=== PATIENT | male | born 1995 | race Caucasian/White ===

== ENCOUNTER 2017-02-07 13:02 | Emergency (ER) | payer SELFPAY ==
[~2017-02-07] VITALS: Ht 170.2 cm; Wt 90.0 kg
[2017-02-07 13:03] VITALS: BP 132/69; PULSE 82; RESP 16; TEMP 98.5
[2017-02-07 13:20] VITALS: O2SAT 97
--- NOTE | 2017-02-07 13:21 | PD ---
Physical Exam Date Seen by Provider: February 07, 2017 Time Seen by Provider: 13:20 Narrative 21 year old male presents to the emergency department for evaluation of possible allergic reaction to poison kwasi 2 days ago. He denies any difficulty swallowing or breathing. He has tried Benadryl over the counter. Vital signs reviewed. Patient awaiting bed placement. Data Data Last Documented VS Vital Signs Date Time Temp Pulse Resp B/P Pulse Ox O2 Delivery O2 Flow Rate FiO2 02/07/17 13:03 98.5 82 16 132/69 [facility] Supervised Visit with TAVO: Juli Denton February 07, 2017 13:21
--- NOTE | 2017-02-07 13:43 | PD ---
HPI Chief Complaint: Skin Problem Time Seen by Provider: 13:43 Travel History International Travel<30 days: No Contact w/Intl Traveler<30days: No Traveled to known affect area: No History of Present Illness HPI 21-year-old male presents to emergency Department with complaint of a rash all over his body times one week. He reports being in contact with poison vanessa. The rash is itchy. He denies fever, chills, nausea, vomiting. Denies airway edema, shortness of breath, difficulty breathing. Has taken Benadryl and says the Benadryl made his symptoms worse. He tried [id number] topical anti- itch creams with no relief of symptoms. He says the rash is spread and now his girlfriend has the rash also. No known allergies. Has no other medical complaints. No other modifying factors or associated signs and symptoms. [facility] Social History Tobacco Use: No Allergies-Medications (Allergen,Severity, Reaction): Coded Allergies: No Known Allergies (Unverified , 02/07/17) Reported Meds & Prescriptions Reported Meds & Active Scripts Active Deltasone (Prednisone) 20 Mg Tab 40 Mg PO DAILY 4 Days start 02/08/2017 Review of Systems Except as stated in HPI: all other systems reviewed are Neg Physical Exam Narrative GENERAL: Well-nourished, well-developed patient, in no acute distress; afebrile , nontoxic-appearing SKIN: Warm and dry. Generalized large and small areas of maculopapular rash to bilateral upper and lower extremities, chest, abdomen. No areas of cellulitic process noted. HEAD: Atraumatic. Normocephalic. EYES: Pupils equal and round. ENT: Mucosa pink and moist. No erythema or exudates. Airway patent. EARS: Bilateral pinnae and external canals appear within normal limits. NECK: Trachea midline. No lymphadenopathy. CARDIOVASCULAR: Regular rate and rhythm. No murmur appreciated. RESPIRATORY: No accessory muscle use. Clear to auscultation. Breath sounds equal bilaterally. GASTROINTESTINAL: Abdomen soft, non-tender, nondistended. Hepatic and splenic margins not palpable. Bowel sounds are active 4 quadrants. MUSCULOSKELETAL: No obvious deformities. No clubbing. No cyanosis. No edema. NEUROLOGICAL: Awake and alert. Oriented 3. No obvious cranial nerve deficits. Motor grossly within normal limits. Normal speech. Moves all extremities. 5/5 strength to all extremities. PSYCHIATRIC: Appropriate mood and affect; insight and judgment normal. Data Data Last Documented VS Vital Signs Date Time Temp Pulse Resp B/P Pulse Ox O2 Delivery O2 Flow Rate FiO2 02/07/17 13:20 97 02/07/17 13:03 98.5 82 16 132/69 Orders Prednisone (Deltasone) (02/07/17 13:45) MDM Medical Decision Making Medical Screen Exam Complete: Yes Emergency Medical Condition: Yes Medical Record Reviewed: Yes Differential Diagnosis Poison vanessa rash, contact dermatitis, hives Narrative Course 21-year-old male with a nonspecific skin eruption and rash generalized to the bilateral upper and lower extremities, chest, abdomen. Patient reports coming in contact with poison vanessa. He is afebrile and nontoxic-appearing. He denies fever or vomiting. Says the Benadryl makes his symptoms worse. Deltasone administered in the ER. Deltasone prescribed for home. Instructed patient to follow up with dermatology. Patient verbalizes understanding and agreement with treatment plan. Patient is medically cleared and stable for discharge. Discussed reasons to return to the emergency department. Instructed patient to follow up with primary care provider. Patient agrees with treatment plan. The patients vital signs are stable and the patient is stable for outpatient follow- up and treatment. Patient discharged home, stable and in no acute distress. Diagnosis Primary Impression: Rash and nonspecific skin eruption Referrals: [employer] Primary Care Physician Patient Instructions: Acute Rash (ED), General Instructions, Poison Vanessa (ED) Departure Forms: Tests/Procedures, Work Release Enter return to work date: February 08, 2017 Additional Instructions: Take prednisone as prescribed [id number] topicals to reduce itch Benadryl as directed and as needed to reduce itch Follow-up with your primary care provider Return to the emergency department immediately with worsening of symptoms Med/Other Pt SpecificInfo: Prescription(s) given Scripts Prednisone (Deltasone)20 Mg Tab40 Mg PO DAILY 4 Days Ref 0 start 02/08/2017 Prov:Amie Mccullough 02/07/17 Disposition: 01 DISCHARGE HOME Condition: Stable Amie Mccullough February 07, 2017 13:43
[2017-02-07] MEDS ORDERED: predniSONE 20 MG TAB PO ONE (13:45)
[2017-02-07] MEDS ORDERED: PRED-503 PO (13:47)
== END 2017-02-07 14:05 | disposition home or self-care (01) ==
LOC: NEPK 13:02
DX: R21 Rash and other nonspecific skin eruption (principal)
CPT/HCPCS: 99282; J7512